=== PATIENT | male | born 1995 | race African-American/Black ===

== ENCOUNTER 2021-10-26 17:54 | Emergency (ER) | payer MEDICAID ==
[~2021-10-26] VITALS: Ht 190.5 cm; Wt 76.7 kg
[2021-10-26 18:02] VITALS: BP_SYST 120
--- NOTE | 2021-10-26 18:10 | NUR ---
Pt brought by self, ambulatory with steady gait, pt is A&Ox4, pt presents to ER with c/o brain vibrations and intermittent headaches,(pt voices it could be alliens) pt denies blurred vision or WALLIS at this time,denies N/V, denies any suicidal or homicidal thoughts, skin pink and warm, cap refill <3, VSS, will cont to monitor.
--- NOTE | 2021-10-26 18:15 | NUR ---
Dr Kamara evaluating patient in the triage room
[2021-10-26 19:14] LABS: BARBITURATE, URINE NEGATIVE (NEG <=200); BENZODIAZEPINE, URINE NEGATIVE (NEG <=150); CANNABINOID, URINE NEGATIVE (NEG <=50); COCAINE, URINE NEGATIVE (NEG <=150); METHAMPHETAMINES SCREEN,URINE NEGATIVE (NEG <=500); OPIATE, URINE NEGATIVE (NEG <=100); PHENCYCLIDINE SCREEN,URINE NEGATIVE (NEG <=25); UR TRICYCLIC ANTIDEPRESSANTS NEGATIVE (NEG <=300); URINE AMPHETAMINE NEGATIVE (NEG <=500); URINE METHADONE NEGATIVE (NEG <=200); URINE OXYCODONE SCREEN NEGATIVE (NEG <=100); URINE PROPOXYPHENE SCREEN NEGATIVE (NEG <=300)
[2021-10-26 19:23] VITALS: BP_SYST 120
--- NOTE | 2021-10-26 19:24 | NUR ---
Patient given written and verbal discharge instructions and verbalizes understanding. ER MD discussed with patient the results and treatment provided. Patient in stable condition. ID arm band removed. No Rx given. Patient educated on pain management and to follow up with PMD. Pain Scale 0/10 . Opportunity for questions provided and answered. Medication side effect fact sheet provided.
== END 2021-10-26 19:23 | disposition home or self-care (01) ==
LOC: SED 17:54
DX: R51.9 Headache, unspecified (principal); Z79.899 Other long term (current) drug therapy
CPT/HCPCS: 70450-TC; 76376; 80307; 99284

== ENCOUNTER 2021-11-16 11:24 | Emergency (ER) | payer MEDICAID ==
[~2021-11-16] VITALS: Ht 177.8 cm; Wt 90.7 kg
--- NOTE | 2021-11-16 12:00 | NUR ---
Pt presents to the er bib self CC wound check. Pt has skin repair to forearm with separation at seam. Pt has dry flaky skin c/o itchiness. Pt has bilateral bumps on skin of hand area. Pt has enlarged teste. Denies pain, afebrile, no signs of infection. Pt denies NVD, pt is in NAD.
[2021-11-16 12:04] VITALS: BP_SYST 132
--- NOTE | 2021-11-16 12:30 | NUR ---
ER at bedside examining patient.
[2021-11-16] MEDS ORDERED: BACITRACIN 1 GM OINT TP ONE (12:32)
[2021-11-16] MEDS ORDERED: CEPH-548 PO (12:37)
[2021-11-16] MEDS ORDERED: MYCOLOG15O TP (12:37)
--- NOTE | 2021-11-16 13:00 | NUR ---
Patient given written and verbal discharge instructions and verbalizes understanding. ER MD discussed with patient the results and treatment provided. Patient in stable condition. ID arm band removed. Opportunity for questions provided and answered. Medication side effect fact sheet provided.
[2021-11-16 13:51] VITALS: BP_SYST 132
== END 2021-11-16 13:51 | disposition home or self-care (01) ==
LOC: SED 11:24
DX: S51.802A Unspecified open wound of left forearm, initial encounter (principal); N48.1 Balanitis; Z79.899 Other long term (current) drug therapy; X58.XXXA Exposure to other specified factors, initial encounter; Y93.89 Activity, other specified; Y92.89 Other specified places as the place of occurrence of the external cause; Y99.8 Other external cause status
CPT/HCPCS: 99283